=== PATIENT | male | born 1980 | race African-American/Black ===

== ENCOUNTER 2024-07-15 21:01 | Emergency (ER) | payer OTHER ==
[~2024-07-15] VITALS: Ht 190.5 cm; Wt 110.0 kg
[2024-07-15 21:18] VITALS: TEMP 98.6
[2024-07-16] MEDS: DiphenhydrAMINE HCL 50 MG/ML VIAL IM ONE (01:45)
[2024-07-16] MEDS: HALOPERIDOL LACTATE 5 MG/ML VIAL IM ONE (01:45)
[2024-07-16] MEDS: LORazepam 2 MG/ML VIAL IM ONE (02:05)
[2024-07-16 03:45] LABS: COVID AG,FIA SOURCE NASAL SWAB
[2024-07-16 04:05] LABS: SARS-COV2 (COVID) ANTIGEN,FIA Negative (Negative)
[2024-07-16 04:49] LABS: BASOPHILS % (AUTO) 0.6 % (0.0-2.0); EOSINOPHILS % (AUTO) 0.2 % (1.0-6.0); HEMATOCRIT 43.7 % (41-53); HEMOGLOBIN 14.9 g/dL (13.5-17.5); LYMPHOCYTES # (AUTO) 1.7 K/uL (1.0-4.8); LYMPHOCYTES % (AUTO) 27.4 % (22.0-44.0); MEAN CORPUSCULAR HEMOGLOBIN 30.1 pg (26.0-34.0); MEAN CORPUSCULAR HGB CONC 34.2 G/dL (31.0-37.0); MEAN CORPUSCULAR VOLUME 88 fL (80-100); MONOCYTES # (AUTO) 0.5 K/uL (0.1-1.0); MONOCYTES % (AUTO) 8.3 % (2.0-9.0); NEUTROPHILS % (AUTO) 63.5 % (40.0-70.0); PLATELET COUNT (AUTO) 206 K/uL (150-450); RED BLOOD CELL COUNT(AUTO) 4.95 MIL/uL (4.50-5.90); RED CELL DISTRIBUTION WIDTH 13.7 % (11.5-14.5); WHITE BLOOD COUNT (AUTO) 6.3 K/uL (4.5-11.0)
[2024-07-16 04:53] LABS: ANION GAP 14 mmol/L (8-16); CALCIUM, TOTAL 9.1 mg/dL (8.8-10.5); CARBON DIOXIDE 25 mmol/L (22-29); CHLORIDE 100 mmol/L (98-107); CREATININE 1.33 mg/dL (0.60-1.30); GLOMERULAR FILTR. RATE CALC > 60 mL/min (>60); GLUCOSE,RANDOM 119 mg/dL (70-110); POTASSIUM 3.8 mmol/L (3.5-5.1); SODIUM SERUM 139 mmol/L (136-145); UREA NITROGEN, BLOOD 9 mg/dL (7-18)
[2024-07-16 13:30] VITALS: BP 120/70; PULSE 80; RESP 16; O2SAT 98
== END 2024-07-16 16:01 ==
LOC: EMS 21:01
DX: F20.9 Schizophrenia, unspecified (principal); Z20.822 Contact with and (suspected) exposure to COVID-19
CPT/HCPCS: 80048; 85025; 36415; 99285; 87426; 96372; G0480; J1200; J1630; J2060